=== PATIENT | male | born 1965 | race Caucasian/White ===

== ENCOUNTER 2016-12-02 06:25 | Day surgery (SDC) | payer OTHER ==
[~2016-12-02] VITALS: Ht 193 cm; Wt 100.2 kg
--- NOTE | ~2016-12-02 | O ---
[facility] [place] [address] OPERATIVE REPORT Name: CHINMAY HOFFMAN Room #: 150-10 [facility] M.R.#: [id number] Admission: 12/02/16 Attend Phys: Josse Boogie MD Discharge: Date of : 63 Report #: [id number] THIS REPORT FOR: //name// CC: FAM unknown Nick Boogie DATE OF SERVICE: 12/02/2016 PREOPERATIVE DIAGNOSIS: Tumor of right lower lid and cheek. POSTOPERATIVE DIAGNOSES: Tumor of right lower lid and cheek, basal cell carcinoma. PROCEDURE: Excision of tumor of right lower lid and cheek with frozen sections and musculocutaneous flap repair of defect. SURGEON: Josse Boogie M.D. COLLISION ESTIMATOR: None. ANESTHESIA: General. COMPLICATIONS: None. INDICATIONS FOR SURGERY: This pleasant 51-year-old gentleman has a large nodular ulcerative mass in his medial right lower lid extending through his nasojugal fold on to the side of his nose. He presents today for excision of this tumor with repair of that defect. A potential for a staged reconstruction with the eye being closed was discussed. Informed consent was otherwise obtained for the risk of bleeding, infection, failure to improve the problem and need for further treatment. DESCRIPTION OF PROCEDURE: The patient was taken to the operating room where general anesthesia was administered. The right lower lid, the right medial canthus, the right lateral canthus, the right cheek, the right infratemporal fossa and the lateral left upper lid were all anesthetized with Xylocaine with epinephrine mixed with Marcaine and Wydase. The patient was subsequently prepped and draped in the usual sterile fashion. A skin marking pen was then utilized to outline the lesion including 1-2 mm of normal appearing tissue. The initial excision superiorly went splitting the anterior and superior lamella so the superior margin was not clear, full thickness resection was subsequently be required with a staged reconstruction. The specimen was oriented on a drawing for the waiting pathologist. She snap froze the specimen and found that the lesion was indeed a basal cell carcinoma as expected and she thought the margins [address] [address] OPERATIVE REPORT Name: ZAC HOFFMANYESSY Mccray Room #: 150-10 [facility] M.R.#: [id number] Admission: 12/02/16 Attend Phys: Josse Boogie MD Discharge: Date of : 63 Report #: [id number] were clear. Attention was then turned to repair that defect. The decision was made to use a musculocutaneous flap. That flap was outlined subsequently relaxing incisions made and it was elevated, rotating from lateral to medial. The flap was then elevated and secured subsequently with multiple interrupted 6-0 plain gut sutures in multiple planes. The wounds were then cleaned and dressed with erythromycin ointment and the patient subsequently transported to the recovery area having tolerated the procedure well with no anesthetic or operative complications being noted. By: [id number] Josse Boogie MD /ariella
--- NOTE | ~2016-12-02 | S ---
[facility] [place] [address] SURGICAL PATH RPT PROCEDURE Name: CHINMAY HOFFMAN Room #: DEP [facility].#: [id number] Admission: 12/02/16 Date of : 63 Discharge: 12/02/16 Report #: [id number] Path Case #: [id number] PATHOLOGY REPORT COLLECTION DATE: 12/02/2016 RECEIVED DATE: 12/03/2016 SUBMITTING PHYS: Dr. Josse Boogie OTHER PHYS: SPECIMEN(S) RECEIVED: A.Basal cell carcinoma right lower lid * * * * * * * * * * * * FINAL DIAGNOSIS: Skin, right lower lid, excision: - BASAL CELL CARCINOMA. - Margins of resection widely free of malignancy. (IUV:mgr; d/t: 12/04/16) PATHOLOGIST: Mia Perez M.D. REPORT ELECTRONICALLY SIGNED BY: Mia Perez M.D. DATE/TIME: 12/04/2016 16:31 * * * * * * * * * * * * GROSS PATHOLOGY: The specimen is received fresh from the OR labeled with the patient's name and "basal cell carcinoma right lower lid" and consists of an oriented ellipse of skin measuring 2.1 x 0.8 x 0.5 cm. The specimen is oriented as medial, inferior, lateral and superior by Dr. Boogie. These are assigned 12:00, 3:00, 6:00 and 9:00, respectively. The 12-3-6:00 is inked black. The 6-9:00 is inked blue, and the 9-12:00 is inked green. At this point, the specimen is serially sectioned and entirely submitted for frozen section as FSA1, and subsequently submitted for permanent sections as A1. (IUV:csd; d/t: 12/02/2016) FROZEN SECTION DIAGNOSIS: (Mia Landis M.D) FSA1, Basal cell carcinoma right lower lid, excision: - BASAL CELL CARCINOMA x2. - Margins free. - Smaller superficial basal cell carcinoma separate from larger one identified. These findings are discussed with Dr. Josse Boogie in OR6 at [facility], and a written report is placed on the patient's chart. (IUV:csd; d/t: 12/02/2016) Professional services performed by Lisette at [place] [address] [place] [address] SURGICAL PATH RPT PROCEDURE Name: HOFFMANCHINMAY Room #: DEP [facility] M.Neal.#: [id number] Admission: 12/02/16 Date of : 63 Discharge: 12/02/16 Report #: [id number] Path Case #: [id number] [address], [place] [address] CLINICAL HISTORY: Previously sampled basal cell carcinoma INITIAL CPT CODE(S): A; 01368, 29515 Professional services performed by Lisette at [facility] [address] [place] [address] Technical services performed by Lisette at [address] [place] [address]., [address], [place] [address]. [facility] [address] [place] [address] PHONE: [phone] DIRECTOR: Ayaz Hobson M.D. * * * END OF REPORT * * *
[~2016-12-02 06:25] MED LIST: GLIMEPIRIDE1 MG PO; LIPITOR10 MG PO; LISINOPRIL-HCT1 EAC2 PO; METFORMIN HCL1000 MG PO
[2016-12-02 13:30] VITALS: BP 133/83
== END 2016-12-02 16:30 | disposition home or self-care (01) ==
LOC: OR 06:25 → TBA 06:26 → OR 09:19
DX: C44.112 Basal cell carcinoma of skin of right eyelid, including canthus (principal); D49.89 Neoplasm of unspecified behavior of other specified sites; F17.210 Nicotine dependence, cigarettes, uncomplicated; I10 Essential (primary) hypertension; E78.00 Pure hypercholesterolemia, unspecified; E11.9 Type 2 diabetes mellitus without complications
CPT/HCPCS: 50010; 50101; 50386; 50398; 51606; 51636; 56531; 62110; 62900; 64037; 70005